=== PATIENT | male | born 1930 | race Caucasian/White ===

== ENCOUNTER 2019-07-26 18:15 | Emergency (ER) | payer OTHER, MEDICARE, BC ==
[2019-07-26 18:20] VITALS: RESP 16; TEMP 98.3
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
[2019-07-26 20:49] VITALS: BP 156/67; PULSE 78
== END 2019-07-26 20:48 | disposition home or self-care (01) ==
LOC: EC 18:15
DX: S50.312A Abrasion of left elbow, initial encounter (principal); R91.8 Other nonspecific abnormal finding of lung field; Z87.891 Personal history of nicotine dependence; V43.52XA Car driver injured in collision with other type car in traffic accident, initial encounter; Y92.410 Unspecified street and highway as the place of occurrence of the external cause
CPT/HCPCS: 70450; 71046; 72125; 99284